=== PATIENT | male | born 1955 | race Caucasian/White ===

== ENCOUNTER 2016-09-29 12:46 | Emergency (ER) | payer OTHER ==
[~2016-09-29] VITALS: Ht 185.4 cm; Wt 107.3 kg
[2016-09-29 13:55] LABS: CREATININE 0.7 mg/dL (0.6-1.3); POTASSIUM 4.2 mEq/L (3.7-5.4)
[2016-09-29 13:55] LABS: EOSINOPHIL (%) 0 % (0-5); IMMATURE GRANULOCYTE (%) 0.3 % (0.0-0.7); INSTRUMENT ABS NEUTROPHIL CT 4.2 K/uL; LYMPHOCYTE COUNT 1.5 K/uL (1.0-2.8); MCH 27.6 PG (29.0-34.0); MCHC 33.1 G/DL (30.0-36.0); MCV 83.3 FL (86-99); MEAN PLAT.VOLUME 11.3 uM^3 (9.0-12.4); MONOCYTE (%) 4.7 % (3-12); MONOCYTE COUNT 0.3 K/uL (0-0.8); NEUTROPHIL (%) 69.5 % (45-76); NEUTROPHIL COUNT 4.2 K/uL (1.8-6.4); PLATELET COUNT 168 K/uL (156-360); RBC DIS.WIDTH-CV 13.6 % (11.8-14.6); RBC DIS.WIDTH-SD 41.1 % (39-53)
[2016-09-29 14:28] LABS: ADD MIUA? NO; BILIRUBIN NEGATIVE; BLOOD NEGATIVE; COLOR COLORLESS ((YELLOW)); GLUCOSE (STRIP) NEGATIVE; KETONES NEGATIVE; LEUKOCYTES NEGATIVE; NITRITE NEGATIVE; PROTEIN (STRIP) NEGATIVE; SPECIFIC GRAVITY 1.003 (1.000-1.030); UROBILINOGEN 0.2 MG/DL (0.2-1.0)
[2016-09-29 14:33] LABS: CHLORIDE 109 mEq/L (99-109); POTASSIUM 3.6 mEq/L (3.7-5.4); SODIUM 139 mEq/L (136-147)
[2016-09-29 14:35] LABS: GLUCOSE 107 mg/dL (70-99)
[2016-09-29 14:36] LABS: ANION GAP 7 MEQ/L (2-14)
[2016-09-29 14:38] LABS: GFR ESTIMATE (CALCULATED) > 59 mL/min/
[2016-09-29 14:39] LABS: UREA NITROGEN (BUN) 15 mg/dL (9-23)
[2016-09-29] MEDS ORDERED: PERCOCET 5/31 TABLET PO (15:50)
[2016-09-29 16:34] VITALS: BP 182/84
== END 2016-09-29 16:36 | disposition home or self-care (01) ==
LOC: EME 12:46
PROVIDERS: Emergency Medicine
PROC: 3E0234Z Introduction of Serum, Toxoid and Vaccine into Muscle, Percutaneous Approach (ICD-10-PCS; principal; 2016-09-29)
DX: S20.229A Contusion of unspecified back wall of thorax, initial encounter (principal); S60.222A Contusion of left hand, initial encounter; S90.01XA Contusion of right ankle, initial encounter; V29.88XA Motorcycle rider (driver) (passenger) injured in other specified transport accidents, initial encounter; R07.9 Chest pain, unspecified; M54.2 Cervicalgia; T14.8 Other injury of unspecified body region
CPT/HCPCS: 70450; 71260; 72125; 72129; 72132; 73130; 73610; 74177; 80047; 80048; 81003; 85025; 99281; 99285; J7030